=== PATIENT | female | born 1945 | race Caucasian/White ===

== ENCOUNTER 2024-06-09 01:55 | Inpatient (IN) ==
[2024-06-09] MEDS ORDERED: IOPAMIDOL 100 ML BOTTLE IV ONE (01:56)
[2024-06-09 02:32] LABS: Basophils # (Auto) 0.03 K/mcL (0.00-0.30); Basophils % (Auto) 0.2 % (0.0-2.0); Eosinophils % (Auto) 1.5 % (0.0-7.0); Hematocrit 39.7 % (34.1-44.9); Hemoglobin 13.5 g/dL (11.2-15.7); Lymphocytes # (Auto) 3.92 K/mcL (1.50-4.80); Lymphocytes % (Auto) 29.6 % (15.5-49.0); Mean Cell Volume 83.2 fL (80.0-100.0); Mean Platelet Volume 8.2 fL (8.8-12.5); Monocytes # (Auto) 0.91 K/mcL (0.10-0.90); Monocytes % (Auto) 6.9 % (1.0-12.0); Neutrophils % (Auto) 61.3 % (38.0-78.0); Platelet Count 754 K/mcL (140-440); RBC 4.77 M/mcL (3.59-5.38); Red Cell Distribution Width 12.4 % (11.5-14.5); WBC 13.2 K/mcL (4.5-11.0)
[2024-06-09] MEDS: KETOROLAC 15 MG/ML VIAL IV ONE (02:34)
[2024-06-09] MEDS: ONDANSETRON 4 MG/2 ML VIAL IV ONE (02:34)
[2024-06-09 02:50] LABS: Thyroid Stimulating Hormone 0.65 uIU/mL (0.27-5.01)
[2024-06-09 02:57] LABS: ALT/SGPT 18 U/L (<40); AST/SGOT 30 U/L (<32); Albumin 3.1 gm/dL (3.2-5.2); Albumin/Globulin Ratio 0.9 (1.0-2.3); Alkaline Phosphatase 112 U/L (39-117); Bilirubin,Total 0.4 mg/dL (0.1-1.0); Blood Urea Nitrogen 13 mg/dL (8-23); Calcium 9.6 mg/dL (8.6-10.4); Carbon Dioxide 21 mmol/L (22-30); Chloride 85 mmol/L (96-108); Globulin 3.5 gm/dL (2.2-3.7); Glomerular Filtration Rate 83; Glucose 113 mg/dL (70-105); Potassium 4.4 mmol/L (3.3-5.1); Sodium 119 mmol/L (133-145)
[2024-06-09 03:37] LABS: Free T4 (Free Thyroxine) 2.07 ng/dL (0.93-1.70)
[2024-06-09] MEDS: 0.9 % SODIUM CHLORIDE 1,000 ML IV SCH (04:21)
[2024-06-09] MEDS: cefTRIAXone 1 GM VIAL IV ONE (06:12)
[2024-06-09] MEDS: fentaNYL 100 MCG/2 ML VIAL IV ONE (06:12)
[2024-06-09 07:29] LABS: Basophils # (Auto) 0.03 K/mcL (0.00-0.30); Basophils % (Auto) 0.3 % (0.0-2.0); Eosinophils # (Auto) 0.17 K/mcL (0.00-0.70); Eosinophils % (Auto) 1.5 % (0.0-7.0); Hematocrit 37.5 % (34.1-44.9); Hemoglobin 12.6 g/dL (11.2-15.7); Lymphocytes # (Auto) 2.99 K/mcL (1.50-4.80); Lymphocytes % (Auto) 26.6 % (15.5-49.0); Mean Cell Volume 84.8 fL (80.0-100.0); Mean Corpuscular HGB Conc 33.6 g/dL (31.0-36.0); Mean Platelet Volume 8.1 fL (8.8-12.5); Monocytes # (Auto) 0.84 K/mcL (0.10-0.90); Monocytes % (Auto) 7.5 % (1.0-12.0); Neutrophils % (Auto) 63.3 % (38.0-78.0); Platelet Count 677 K/mcL (140-440); RBC 4.42 M/mcL (3.59-5.38); Red Cell Distribution Width 12.3 % (11.5-14.5); WBC 11.3 K/mcL (4.5-11.0)
[2024-06-09 07:39] LABS: C-Reactive Protein 1.56 mg/dL (0.03-0.80)
[2024-06-09 07:44] LABS: Thyroid Stimulating Hormone 0.68 uIU/mL (0.27-5.01)
[2024-06-09 07:50] LABS: ALT/SGPT 16 U/L (<40); AST/SGOT 19 U/L (<32); Albumin 3.1 gm/dL (3.2-5.2); Alkaline Phosphatase 99 U/L (39-117); Bilirubin,Direct < 0.2 mg/dL (0-0.3); Bilirubin,Total 0.3 mg/dL (0.1-1.0); Blood Urea Nitrogen 14 mg/dL (8-23); Calcium 9.2 mg/dL (8.6-10.4); Carbon Dioxide 23 mmol/L (22-30); Chloride 85 mmol/L (96-108); Glomerular Filtration Rate 83; Glucose 97 mg/dL (70-105); Lactate Dehydrogenase 106 U/L (135-225); Phosphorous 4.6 mg/dL (2.5-4.5); Potassium 4.5 mmol/L (3.3-5.1); Sodium 120 mmol/L (133-145); Triglycerides 129 mg/dL (<150); Uric Acid 4.3 mg/dL (2.5-8.0)
[2024-06-09 08:35] LABS: Appearance,Urine CLEAR (Clear); Bilirubin,Urine Negative (Negative); Color,Urine YELLOW; Glucose,Urine (UA) Negative (Negative); Ketones,Urine Negative (Negative); Leukocyte Esterase,Urine 75 /uL (Negative); Mucus,Urine FEW /hpf; Nitrate,Urine Negative (Negative); Protein,Urine Negative (Negative); Specific Gravity,Urine 1.038 (1.000-1.035); Urine Blood Negative (Negative); Urine Hyaline Cast 5 /lph (0-2); Urine RBC 2 /hpf (0-3); Urine Squamous Epithelial Cell 3 /hpf (0-4); Urine Transitional Epi Cells 1 /hpf (0-2); Urine WBC 28 /hpf (0-4); Urobilinogen,Urine Negative
[2024-06-09 08:42] LABS: Sodium, Urine Random 21 mmol/L
[2024-06-09 08:45] LABS: Osmolality,Urine 388 mOSM/kg (80-1000)
[2024-06-09] MEDS ORDERED: ONDANSETRON 4 MG/2 ML VIAL IV PRN (09:10)
[2024-06-09] MEDS ORDERED: IPRATROPIUM/ALBUTEROL 3 ML AMPUL.NEB NEB PRN (09:10)
[2024-06-09 09:32] LABS: Sodium 120 mmol/L (133-145)
[2024-06-09] MEDS: ACETAMINOPHEN 325 MG TABLET PO PRN (10:23)
[2024-06-09] MEDS: ENOXAPARIN 40 MG/0.4 ML SYRINGE SQ SCH (12:05)
[2024-06-09] MEDS: LEVOFLOXACIN 750 MG/150 ML BAG IV SCH (12:31)
[2024-06-09] MEDS: IPRATROPIUM/ALBUTEROL 3 ML AMPUL.NEB NEB SCH (12:39)
[2024-06-09] MEDS: LORazepam 2 MG/ML VIAL IV SCH (13:40)
[2024-06-09] MEDS: ASCORBIC ACID 500 MG TABLET PO SCH (13:41)
[2024-06-09] MEDS: HYDROcodone/APAP 10/325MG TABLET PO PRN (13:45)
[2024-06-09 14:07] LABS: Sodium 120 mmol/L (133-145)
[2024-06-09 15:06] LABS: HDL Cholesterol 32 mg/dL (>40); LDL Cholesterol,Calculated 45 mg/dL (<100); Non-HDL Cholesterol 69 mg/dL (<130); Triglycerides 122 mg/dL (<150)
[2024-06-09] MEDS: 0.9 % SODIUM CHLORIDE 10 ML SYRINGE IV SCH (16:49)
[2024-06-09] MEDS: SODIUM CHLORIDE 154 MEQ in WATER FOR INJECTION,STERILE 961.5 ML IV SCH (16:49)
[2024-06-09 17:39] LABS: Sodium 119 mmol/L (133-145)
[2024-06-09 21:20] LABS: Sodium 119 mmol/L (133-145)
[2024-06-09] MEDS: ALPRAZolam 0.5 MG TABLET PO SCH (21:55)
[2024-06-09] MEDS: PRIMIDONE 50 MG TABLET PO SCH (21:55)
[2024-06-09] MEDS: GABAPENTIN 300 MG CAPSULE PO SCH (21:55)
[2024-06-09] MEDS: ASPIRIN 81 MG TAB.CHEW PO SCH (21:55)
[2024-06-09] MEDS: MELATONIN 3 MG TABLET PO PRN (21:55)
[2024-06-09] MEDS: SENNOSIDES 1 TABLET PO SCH (21:55)
[2024-06-09] MEDS: ATORVASTATIN 10 MG TABLET PO SCH (21:55)
[2024-06-09] MEDS: LIDOCAINE 4% TOP PATCH TOPICAL SCH (21:55)
[2024-06-10 01:40] LABS: Sodium 121 mmol/L (133-145)
[2024-06-10 06:27] LABS: Basophils # (Auto) 0.05 K/mcL (0.00-0.30); Basophils % (Auto) 0.5 % (0.0-2.0); Eosinophils # (Auto) 0.11 K/mcL (0.00-0.70); Eosinophils % (Auto) 1.2 % (0.0-7.0); Hematocrit 37.4 % (34.1-44.9); Hemoglobin 12.5 g/dL (11.2-15.7); Lymphocytes # (Auto) 2.55 K/mcL (1.50-4.80); Lymphocytes % (Auto) 27.1 % (15.5-49.0); Mean Cell Volume 85.2 fL (80.0-100.0); Mean Corpuscular HGB Conc 33.4 g/dL (31.0-36.0); Mean Platelet Volume 8.1 fL (8.8-12.5); Monocytes # (Auto) 0.76 K/mcL (0.10-0.90); Monocytes % (Auto) 8.1 % (1.0-12.0); Neutrophils % (Auto) 62.4 % (38.0-78.0); Platelet Count 730 K/mcL (140-440); RBC 4.39 M/mcL (3.59-5.38); Red Cell Distribution Width 12.5 % (11.5-14.5); WBC 9.4 K/mcL (4.5-11.0)
[2024-06-10 06:55] LABS: Blood Urea Nitrogen 12 mg/dL (8-23); C-Reactive Protein 0.86 mg/dL (0.03-0.80); Calcium 9.7 mg/dL (8.6-10.4); Carbon Dioxide 25 mmol/L (22-30); Chloride 86 mmol/L (96-108); Glomerular Filtration Rate 83; Glucose 116 mg/dL (70-105); Potassium 4.3 mmol/L (3.3-5.1); Sodium 122 mmol/L (133-145)
[2024-06-10] MEDS: POLYETHYLENE GLYCOL 3350 17 GM PACKET PO SCH (07:17)
[2024-06-10] MEDS: PANTOPRAZOLE 40 MG TABLET PO SCH (07:18)
[2024-06-10] MEDS ORDERED: PRIMIDONE 50 MG TABLET PO SCH (09:00)
[2024-06-10] MEDS ORDERED: cefTRIAXone 1 GM VIAL IV SCH (09:00)
[2024-06-10 09:44] LABS: Sodium 121 mmol/L (133-145)
[2024-06-10] MEDS: MULTIVIT,THER IRON,CA,FA & MIN 1 TABLET PO SCH (10:04)
[2024-06-10] MEDS: LISINOPRIL 20 MG TABLET PO SCH (10:05)
[2024-06-10] MEDS: METOPROLOL SUCCINATE 50 MG TAB.XL.24H PO SCH (10:05)
[2024-06-10] MEDS: ASCORBIC ACID 500 MG TABLET PO SCH (10:07)
[2024-06-10] MEDS: CALCIUM W/VIT D3 500 MG TABLET PO SCH ×2 (10:10→10:40)
[2024-06-10] MEDS: LEVOFLOXACIN 250 MG/50 ML BAG IV ONE (10:24)
[2024-06-10] MEDS: LEVOFLOXACIN 500 MG/100 ML BAG IV ONE (10:25)
[2024-06-10] MEDS: NICOTINE 14 MG PATCH TOPICAL SCH (11:32)
[2024-06-10] MEDS: VITAMIN E (DL,TOCOPHERYL ACET) 400 UNIT CAPSULE PO SCH (11:33)
[2024-06-10] MEDS: 0.9 % SODIUM CHLORIDE 1,000 ML IV SCH (11:35)
[2024-06-10 13:40] LABS: Sodium 121 mmol/L (133-145)
[2024-06-10] MEDS: FUROSEMIDE 40 MG/4 ML VIAL IV ONE (15:46)
[2024-06-10] MEDS: MELATONIN 3 MG TABLET PO SCH (20:50)
[2024-06-10] MEDS: ZOLPIDEM 5 MG TABLET PO PRN (20:51)
[2024-06-10 21:36] LABS: Sodium 122 mmol/L (133-145)
[2024-06-11 06:53] LABS: ALT/SGPT 14 U/L (<40); AST/SGOT 19 U/L (<32); Albumin 3.1 gm/dL (3.2-5.2); Albumin/Globulin Ratio 1.2 (1.0-2.3); Alkaline Phosphatase 83 U/L (39-117); Bilirubin,Direct < 0.2 mg/dL (0-0.3); Bilirubin,Total 0.3 mg/dL (0.1-1.0); Blood Urea Nitrogen 16 mg/dL (8-23); C-Reactive Protein 0.55 mg/dL (0.03-0.80); Calcium 9.8 mg/dL (8.6-10.4); Carbon Dioxide 27 mmol/L (22-30); Chloride 87 mmol/L (96-108); Globulin 2.6 gm/dL (2.2-3.7); Glomerular Filtration Rate 71; Glucose 92 mg/dL (70-105); Lactate Dehydrogenase 115 U/L (135-225); Potassium 4.2 mmol/L (3.3-5.1); Sodium 125 mmol/L (133-145); Triglycerides 129 mg/dL (<150); Uric Acid 5.5 mg/dL (2.5-8.0)
[2024-06-11] MEDS: SODIUM CHLORIDE 1 GM TABLET PO SCH (08:59)
[2024-06-11] MEDS: LEVOFLOXACIN 750 MG TABLET PO SCH (08:59)
[2024-06-11 18:17] LABS: Sodium 124 mmol/L (133-145)
[2024-06-11] MEDS: FUROSEMIDE 40 MG/4 ML VIAL IV ONE (19:40)
[2024-06-12 06:41] LABS: Basophils # (Auto) 0.05 K/mcL (0.00-0.30); Basophils % (Auto) 0.5 % (0.0-2.0); Eosinophils # (Auto) 0.21 K/mcL (0.00-0.70); Eosinophils % (Auto) 2.2 % (0.0-7.0); Hematocrit 37.9 % (34.1-44.9); Hemoglobin 12.6 g/dL (11.2-15.7); Lymphocytes # (Auto) 3.12 K/mcL (1.50-4.80); Mean Cell Volume 85.7 fL (80.0-100.0); Mean Corpuscular HGB Conc 33.2 g/dL (31.0-36.0); Mean Platelet Volume 8.2 fL (8.8-12.5); Monocytes # (Auto) 0.98 K/mcL (0.10-0.90); Monocytes % (Auto) 10.4 % (1.0-12.0); Neutrophils % (Auto) 53.5 % (38.0-78.0); Platelet Count 723 K/mcL (140-440); RBC 4.42 M/mcL (3.59-5.38); WBC 9.5 K/mcL (4.5-11.0)
[2024-06-12 07:05] LABS: ALT/SGPT 14 U/L (<40); AST/SGOT 19 U/L (<32); Albumin 3.3 gm/dL (3.2-5.2); Albumin/Globulin Ratio 1.1 (1.0-2.3); Alkaline Phosphatase 85 U/L (39-117); Bilirubin,Direct < 0.2 mg/dL (0-0.3); Bilirubin,Total 0.3 mg/dL (0.1-1.0); Blood Urea Nitrogen 20 mg/dL (8-23); Calcium 9.9 mg/dL (8.6-10.4); Carbon Dioxide 28 mmol/L (22-30); Chloride 89 mmol/L (96-108); Globulin 2.9 gm/dL (2.2-3.7); Glomerular Filtration Rate 61; Glucose 94 mg/dL (70-105); Lactate Dehydrogenase 127 U/L (135-225); Phosphorous 4.7 mg/dL (2.5-4.5); Potassium 4.4 mmol/L (3.3-5.1); Sodium 128 mmol/L (133-145); Triglycerides 154 mg/dL (<150); Uric Acid 6.3 mg/dL (2.5-8.0)
[2024-06-12 13:36] LABS: Sodium 128 mmol/L (133-145)
[2024-06-12] MEDS: FUROSEMIDE 40 MG/4 ML VIAL IV ONE (15:16)
[2024-06-12] MEDS: BISMUTH SUBSALICYLATE 15 ML ORAL.SUSP PO PRN (17:34)
[2024-06-12] MEDS: diphenhydrAMINE 25 MG CAPSULE PO SCH (20:56)
[2024-06-13 06:53] LABS: Blood Urea Nitrogen 24 mg/dL (8-23); Carbon Dioxide 28 mmol/L (22-30); Chloride 93 mmol/L (96-108); Glomerular Filtration Rate 48; Glucose 99 mg/dL (70-105); Potassium 4.4 mmol/L (3.3-5.1); Sodium 132 mmol/L (133-145)
[2024-06-13] MEDS: POLYETHYLENE GLYCOL 3350 17 GM PACKET PO SCH (09:27)
== END 2024-06-13 11:06 | disposition home or self-care (01) | DRG 643 ==
LOC: ED 01:55 → ICU 09:02
PROVIDERS: ADMIT Student in an Organized Health Care Education/Training Program; ATTEND Internal Medicine